=== PATIENT | female | born 1970 | race Caucasian/White ===

== ENCOUNTER 2019-01-10 19:22 | Emergency (ER) | payer OTHER ==
[~2019-01-10] VITALS: Ht 160 cm; Wt 68.0 kg
[2019-01-10] MEDS ORDERED: SINGULAIR4 M1 PO (19:53)
[2019-01-10] MEDS ORDERED: ADVAIR HFA 230/12 GM IH (19:53)
== END 2019-01-11 01:24 | disposition home or self-care (01) ==
LOC: ER 19:22
DX: N20.0 Calculus of kidney (principal); R10.32 Left lower quadrant pain

== ENCOUNTER → 2019-01-23 | Emergency (ER) | payer OTHER ==
[~2019-01-23] VITALS: Ht 160 cm; Wt 64.4 kg
[~2019-01-23] MED LIST: ADVAIR HFA 230/12 GM IH; ALBUTEROL1.25 MG/3 IH; MEDROLPACK PO; PROMETHAZINE W118 ML PO; SINGULAIR4 M1 PO
== END | disposition home or self-care (01) ==
LOC: ER 10:36
DX: J45.998 Other asthma (principal)

== ENCOUNTER 2023-04-27 18:22 | Emergency (ER) | payer OTHER ==
[~2023-04-27] VITALS: Ht 160 cm; Wt 72.6 kg
[2023-04-27] MEDS ORDERED: VENTOLIN HFA18 GM IH (19:03)
== END 2023-04-28 01:35 | disposition home or self-care (01) ==
LOC: ER 18:22
DX: J45.909 Unspecified asthma, uncomplicated (principal); J20.9 Acute bronchitis, unspecified; Z88.6 Allergy status to analgesic agent; Z88.0 Allergy status to penicillin

== ENCOUNTER 2023-06-15 10:26 | Emergency (ER) | payer OTHER ==
[~2023-06-15] VITALS: Ht 160 cm; Wt 72.6 kg
[~2023-06-15 10:26] MED LIST changes: +VENTOLIN HFA18 GM IH
[2023-06-15] MEDS ORDERED: TRAM1TAB98 PO (13:46)
== END 2023-06-15 13:54 | disposition home or self-care (01) ==
LOC: ER 10:26
DX: R10.84 Generalized abdominal pain (principal); N83.209 Unspecified ovarian cyst, unspecified side

== ENCOUNTER 2023-06-26 18:56 | Inpatient (IN) | payer OTHER ==
[~2023-06-26] VITALS: Ht 167.6 cm; Wt 73.5 kg
[~2023-06-26 18:56] MED LIST changes: +TRAM1TAB98 PO
[2023-06-26] MEDS ORDERED: CLARITIN10 M1 (19:08)
[2023-07-02] MEDS ORDERED: MONTELUKAST SOD10 MG PO (09:35)
[2023-07-02] MEDS ORDERED: MEDROLPACK PO (09:36)
[2023-07-02] MEDS ORDERED: ALTIPRES LIQUI473 ML PO (09:36)
== END 2023-07-02 11:35 | disposition home or self-care (01) | DRG 202 ==
LOC: ER 18:56 → MEDJ 22:57
PROVIDERS: ADMIT Internal Medicine; ATTEND Internal Medicine
PROC: BB24ZZZ Computerized Tomography (CT Scan) of Bilateral Lungs (ICD-10-PCS; principal; 2023-06-26)
PROC: 3E0F7GC Introduction of Other Therapeutic Substance into Respiratory Tract, Via Natural or Artificial Opening (ICD-10-PCS; 2023-06-26)
DX: J45.41 Moderate persistent asthma with (acute) exacerbation (principal); R65.10 Systemic inflammatory response syndrome (SIRS) of non-infectious origin without acute organ dysfunction; D72.829 Elevated white blood cell count, unspecified; R09.02 Hypoxemia

== ENCOUNTER 2023-09-26 16:04 | Emergency (ER) | payer OTHER ==
[~2023-09-26] VITALS: Ht 160 cm; Wt 72.6 kg
[~2023-09-26 16:04] MED LIST changes: +ALTIPRES LIQUI473 ML PO; +CLARITIN10 M1; +MONTELUKAST SOD10 MG PO
[2023-09-26 17:54] LABS: HEMATOCRIT 44.1 % (36.0-45.00); HEMOGLOBIN 15.3 g/dL (12.0-15.00); MEAN CELL VOLUME 87.9 fL (80.00-100.00); MEAN CORPUSCULAR HEMOGLOBIN 30.5 pg (27.00-32.0); MEAN CORPUSCULAR HGB CONC 34.7 g/dl (32.0-36.0); PLATELET COUNT 327 K/uL (150-450); RED BLOOD COUNT 5.01 M/uL (4.00-6.00); RED CELL DISTRIBUTION WIDTH 13.1 % (11.5-14.5)
[2023-09-26 18:21] LABS: ALBUMIN 3.3 gm/dL (3.4-5.0); BILIRUBIN TOTAL 0.44 mg/dL (0.3-1.2); CALCIUM 8.5 mg/dL (8.5-10.1); CREATININE SERUM 0.58 mg/dL (0.55-1.02); GFR 109.17; GLOBULINA 3.7 G/DL (2.4-3.5); POTASSIUM 3.46 mEq/L (3.5-5.1)
[2023-09-26 18:44] LABS: PH,URINE 5.5 (5.0-8.0); URINE APPEARANCE Clear; URINE BILIRRUBIN Negative (NEGATIVE); URINE BLOOD Small; URINE COLOR Yellow; URINE GLUCOSE Negative (NEGATIVE); URINE LEUKOCYTE Negative; URINE NITRATE Negative; URINE PROTEIN Negative (NEGATIVE)
[2023-09-26 18:48] LABS: URINE BACTERIA 472.4 uL (0.0-1933); URINE EPITHELIAL CELLS 40.4 uL (0.0-38.8); URINE RBC 23.1 uL (0.0-20.8); URINE WBC 13.7 uL (0.0-23.2)
[2023-09-26] MEDS ORDERED: ONDANSETRON HCL4 MG PO (20:07)
[2023-09-26] MEDS ORDERED: LEVSIN0.125 MG PO (20:07)
[2023-09-26] MEDS ORDERED: PEPCID AC20 MG PO (20:07)
[2023-09-26] MEDS ORDERED: INTESTINEX680 M1 PO (20:07)
== END 2023-09-26 20:43 | disposition home or self-care (01) ==
LOC: ER 16:04
PROVIDERS: Nurse Practitioner Family
DX: A08.4 Viral intestinal infection, unspecified (principal); Z88.6 Allergy status to analgesic agent; Z88.0 Allergy status to penicillin; Z87.09 Personal history of other diseases of the respiratory system; Z20.822 Contact with and (suspected) exposure to COVID-19

== ENCOUNTER 2024-12-03 20:12 | Emergency (ER) | payer OTHER ==
[~2024-12-03] VITALS: Ht 160 cm; Wt 72.1 kg
[~2024-12-03 20:12] MED LIST changes: +INTESTINEX680 M1 PO; +LEVSIN0.125 MG PO; +MILLIPRED5 MG PO; +ONDANSETRON HCL4 MG PO; +PEPCID AC20 MG PO; +XOPENEX CO1.25 MG/0. IH; +ZITHROMAX TRI-500 MG PO
[2024-12-03] MEDS ORDERED: VENTOLIN HFA18 GM (20:59)
[2024-12-03] MEDS ORDERED: WIXELA 250-501 EACH IH (20:59)
[2024-12-03] MEDS ORDERED: CLARITIN5 MG (21:00)
[2024-12-03] MEDS ORDERED: BUTALB/ACETAMINOPHEN/CAFFEINE 1 TAB TABLET PO ONE ×2 (21:26→21:30)
[2024-12-03] MEDS ORDERED: DEXAMETHASONE SODIUM PHOSPHATE 4 MG/ML VIAL ONE (21:27)
[2024-12-03] MEDS ORDERED: PROMETHAZINE HCL 50 MG/ML AMPUL IM ONE ×2 (21:27→21:30)
[2024-12-03] MEDS ORDERED: DEXAMETHASONE SODIUM PHOSPHATE 4 MG/ML VIAL IM ONE (21:30)
[2024-12-03] MEDS ORDERED: BUTALBIT-ACETA1 EACH PO (22:16)
== END 2024-12-03 22:30 | disposition home or self-care (01) ==
LOC: ER 20:12
DX: G43.909 Migraine, unspecified, not intractable, without status migrainosus (principal); Z88.0 Allergy status to penicillin; Z87.09 Personal history of other diseases of the respiratory system; Z88.6 Allergy status to analgesic agent; Z91.011 Allergy to milk products

== ENCOUNTER 2025-03-02 22:21 | Emergency (ER) | payer OTHER ==
[~2025-03-02] VITALS: Ht 160 cm; Wt 72.6 kg
[~2025-03-02 22:21] MED LIST changes: +BUTALBIT-ACETA1 EACH PO; +CLARITIN5 MG; +VENTOLIN HFA18 GM; +WIXELA 250-501 EACH IH
[2025-03-02] MEDS ORDERED: PLAVIX75 MG (22:37)
[2025-03-03] MEDS ORDERED: LEVALBUTEROL HCL 0.63 MG/3 ML SOLUTION IH SCH (01:00)
[2025-03-03] MEDS ORDERED: BUDESONIDE 0.5 MG/2 ML AMPUL.NEB IH STA (01:01)
[2025-03-03] MEDS ORDERED: METHYLPREDNISOLONE SOD SUCC 125 MG VIAL IV STA (01:01)
[2025-03-03] MEDS ORDERED: GUAIFENESIN 200 MG/10 ML BLIST.PACK PO STA (01:02)
[2025-03-03] MEDS ORDERED: GUAIFENESIN 200 MG/10 ML BLIST.PACK PO ONE (01:11)
[2025-03-03] MEDS ORDERED: METHYLPREDNISOLONE SOD SUCC 125 MG VIAL ONE (01:11)
[2025-03-03] MEDS ORDERED: ALBUTEROL SULFATE 3 ML/2.5 MG AMPUL.NEB IH ONE (01:56)
[2025-03-03] MEDS ORDERED: BUDESONIDE 0.5 MG/2 ML AMPUL.NEB IH ONE (01:56)
[2025-03-03] MEDS ORDERED: LEVALBUTEROL HCL 0.63 MG/3 ML SOLUTION IH ONE (01:58)
[2025-03-03 02:08] LABS: HEMATOCRIT 43.7 % (36.0-45.00); HEMOGLOBIN 14.9 g/dL (12.0-15.00); MEAN CELL VOLUME 89.5 fL (80.00-100.00); MEAN CORPUSCULAR HEMOGLOBIN 30.4 pg (27.00-32.0); PLATELET COUNT 341 K/uL (150-450); RED BLOOD COUNT 4.89 M/uL (4.00-6.00); RED CELL DISTRIBUTION WIDTH 12.9 % (11.5-14.5)
[2025-03-03 02:34] LABS: COVID-19 AG NEGATIVE (NEGATIVE); INFLUENZA A AG NEGATIVE (NEGATIVE)
[2025-03-04] MEDS ORDERED: LIPITOR40 M1 (13:05)
[2025-03-04] MEDS ORDERED: XOPENEX CO1.25 MG/0. IH (15:27)
[2025-03-04] MEDS ORDERED: TUSNEL LIQUID178 ML PO (15:27)
[2025-03-04] MEDS ORDERED: LEVOFLOXACIN750 MG PO (15:27)
[2025-03-04] MEDS ORDERED: MEDROLPACK PO (15:27)
== END 2025-03-03 04:20 ==
LOC: ER 22:22
PROVIDERS: General Practice
DX: J45.909 Unspecified asthma, uncomplicated (principal); R05.9 Cough, unspecified; Z20.822 Contact with and (suspected) exposure to COVID-19; Z88.0 Allergy status to penicillin; Z88.6 Allergy status to analgesic agent; Z91.011 Allergy to milk products

== ENCOUNTER 2025-03-04 12:14 | Emergency (ER) | payer OTHER ==
[~2025-03-04] VITALS: Ht 160 cm; Wt 72.6 kg
[~2025-03-04 12:14] MED LIST changes: +PLAVIX75 MG
[2025-03-04] MEDS ORDERED: LIPITOR40 M1 (13:05)
[2025-03-04] MEDS ORDERED: METHYLPREDNISOLONE SOD SUCC 125 MG VIAL ONE (13:29)
[2025-03-04] MEDS ORDERED: HYDROCODONE/CHLORPHEN P-STIREX 5 ML ML PO ONE (13:30)
[2025-03-04] MEDS ORDERED: 0.9 % SODIUM CHLORIDE 1,000 ML IV SCH (13:30)
[2025-03-04] MEDS ORDERED: levoFLOXacin IN DEXTROSE 5 % 5 MG/ML PIGGYBAG IV ONE (13:30)
[2025-03-04] MEDS ORDERED: LEVALBUTEROL HCL 1.25 MG/3 ML SOLUTION IH SCH (13:30)
[2025-03-04] MEDS ORDERED: METHYLPREDNISOLONE SOD SUCC 125 MG VIAL IV ONE (13:30)
[2025-03-04 14:13] LABS: HEMATOCRIT 47.5 % (36.0-45.00); HEMOGLOBIN 15.8 g/dL (12.0-15.00); MEAN CORPUSCULAR HEMOGLOBIN 30.3 pg (27.00-32.0); MEAN CORPUSCULAR HGB CONC 33.3 g/dl (32.0-36.0); PLATELET COUNT 360 K/uL (150-450); RED BLOOD COUNT 5.22 M/uL (4.00-6.00); RED CELL DISTRIBUTION WIDTH 12.8 % (11.5-14.5)
[2025-03-04] MEDS ORDERED: LEVALBUTEROL HCL 0.63 MG/3 ML SOLUTION IH ONE (14:30)
[2025-03-04 14:48] LABS: COVID-19 AG NEGATIVE (NEGATIVE)
[2025-03-04 14:49] LABS: ABG PH 7.459 (7.35-7.45); ABG PO2 91.5 mmHg (80-100); BASE EXCESS 0.4 mmol/l; BICARBONATE 23.6 mmol/l (23-25); SaO2 97.5 %; Tco2 24.6 mmol/l
[2025-03-04 14:53] LABS: INFLUENZA A AG NEGATIVE (NEGATIVE)
[2025-03-04 14:55] LABS: allen test SATISFACTORY; mode ROOM AIR; o2 21 %; puncture site RADIAL LEFT
[2025-03-04] MEDS ORDERED: LEVOFLOXACIN750 MG PO (15:27)
[2025-03-04] MEDS ORDERED: TUSNEL LIQUID178 ML PO (15:27)
[2025-03-04] MEDS ORDERED: XOPENEX CO1.25 MG/0. IH (15:27)
[2025-03-04] MEDS ORDERED: MEDROLPACK PO (15:27)
== END 2025-03-04 16:10 | disposition home or self-care (01) ==
LOC: ER 12:16
PROVIDERS: General Practice
DX: J40 Bronchitis, not specified as acute or chronic (principal); Z20.822 Contact with and (suspected) exposure to COVID-19; Z88.0 Allergy status to penicillin; Z87.09 Personal history of other diseases of the respiratory system; Z88.6 Allergy status to analgesic agent; Z91.011 Allergy to milk products

== ENCOUNTER → 2025-05-26 | Emergency (ER) | payer OTHER ==
[~2025-05-26] VITALS: Ht 160 cm; Wt 73.5 kg
[~2025-05-26] MED LIST changes: +HYDROCODONE/CHLORPHEN P-STIREX 5 ML ML PO STA; +LEVOFLOXACIN750 MG PO; +LIPITOR40 M1; +TUSNEL LIQUID178 ML PO
[2025-05-26 22:12] VITALS: BP 143/85; O2SAT 97
== END | disposition home or self-care (01) ==
LOC: ER 21:35
DX: U07.1 COVID-19 (principal); Z88.0 Allergy status to penicillin; Z91.011 Allergy to milk products; Z88.6 Allergy status to analgesic agent

== ENCOUNTER 2025-08-23 14:32 | Inpatient (IN) | payer OTHER ==
[~2025-08-23] VITALS: Ht 160 cm; Wt 73.5 kg
[~2025-08-23 14:32] MED LIST changes: -HYDROCODONE/CHLORPHEN P-STIREX 5 ML ML PO STA
--- NOTE | 2025-08-23 14:50 | NUR ---
SE RECIBE PACIENTE ALERTA Y ORIENTDA L;A CUAL REFIERE LLEVAR CON ASMA SEVERA DESDE LUNES PASADO. AL MOMENTO PACIENTE SATURANDO 97%. SE MIDEN S/V Y SE UBICA.
[2025-08-23] MEDS ORDERED: METHYLPREDNISOLONE SOD SUCC 125 MG VIAL IV ONE (16:00)
[2025-08-23] MEDS ORDERED: IPRATROPIUM BROMIDE 0.5 MG/2.5 ML AMPUL.NEB IH SCH (16:00)
[2025-08-23] MEDS ORDERED: LEVALBUTEROL HCL 1.25 MG/3 ML SOLUTION IH SCH (16:00)
[2025-08-23] MEDS ORDERED: MAGNESIUM SULFATE IN WATER 2 GM/50 ML PIGGYBAG IV ONE (16:00)
[2025-08-23] MEDS ORDERED: LEVALBUTEROL HCL 1.25 MG/3 ML SOLUTION IH ONE (16:21)
[2025-08-23] MEDS ORDERED: IPRATROPIUM BROMIDE 0.5 MG/2.5 ML AMPUL.NEB IH ONE (16:21)
[2025-08-23 16:50] LABS: ABG PH 7.472 (7.35-7.45); ABG PO2 109.1 mmHg (80-100); BICARBONATE 23.1 mmol/l (23-25)
[2025-08-23 16:52] LABS: o2 28 %
[2025-08-23] MEDS ORDERED: METHYLPREDNISOLONE SOD SUCC 125 MG VIAL ONE (17:06)
--- NOTE | 2025-08-23 18:22 | NUR ---
SE ORIENTA A PACIENTE SOBRE TX MEDICO. SE COLECTAN MUESTRAS DE LABORATORIO Y SE CANALIZA A PACIENTE BAJO MEDIDAS ASEPTICAS. SE ADMINISTRAN MEDICAMENTOS DAINA ORDEN MEDICA. SE NOTIFICA X-RAY.
[2025-08-23 18:24] LABS: BASO % 0.4 % (0.1-1.2); EOS # 0.00 (0.04-0.54); EOS % 0.0 % (0.7-7.0); LYMPH # 1.73 (1.18-3.74); LYMPH % 18.6 % (19.3-53.1); MEAN PLATELET VOLUME 10.40 fl (9.4-12.4); MONO # 1.27 (0.24-0.82); NEUT # 6.18 (1.56-6.13); NEUT % 66.3 % (34.0-71.1); RED CELL DISTRIBUTION WIDTH 12.0 % (11.6-14.4)
[2025-08-23 18:30] LABS: MONO % 13.6 % (4.7-12.5)
[2025-08-23 18:44] LABS: BUN CREA RATIO 16.0 (7.0-25.0); CREATININE SERUM 0.73 mg/dL (0.55-1.02); GFR 83.08; GLUCOSE FASTING 119.0 mg/dL (65-100); OSMOLALITY SERUM 286.0 MOSM/KG (275-295)
[2025-08-23 18:58] LABS: COVID-19 AG NEGATIVE (NEGATIVE)
[2025-08-23] MEDS ORDERED: METHYLPREDNISOLONE SOD SUCC 40 MG VIAL IV ONE (20:30)
[2025-08-23] MEDS ORDERED: METHYLPREDNISOLONE SOD SUCC 40 MG VIAL IV SCH (20:37)
[2025-08-23] MEDS ORDERED: CLOPIDOGREL BISULFATE 75 MG TABLET PO SCH (20:42)
[2025-08-23] MEDS ORDERED: ATORVASTATIN CALCIUM 10 MG TABLET PO SCH (20:42)
[2025-08-23] MEDS ORDERED: 0.9 % SODIUM CHLORIDE 1,000 ML IV SCH (20:45)
[2025-08-23] MEDS ORDERED: ACETAMINOPHEN 325 MG TABLET PO PRN (20:45)
[2025-08-23] MEDS ORDERED: BENZONATATE 100 MG CAPSULE PO PRN (20:45)
[2025-08-23] MEDS ORDERED: MAGNESIUM SULFATE IN WATER 50 ML IV ONE (20:45)
[2025-08-23] MEDS ORDERED: IPRATROPIUM/ALBUTEROL SULFATE 3 ML AMPUL.NEB IH SCH (21:00)
[2025-08-23] MEDS ORDERED: IPRATROPIUM/ALBUTEROL SULFATE 3 ML AMPUL.NEB IH ONE (21:52)
[2025-08-24 00:13] LABS: URINE APPEARANCE Clear; URINE BILIRRUBIN Negative (NEGATIVE); URINE BLOOD Moderate; URINE COLOR Yellow; URINE GLUCOSE Negative (NEGATIVE); URINE KETONE Negative (NEGATIVE); URINE LEUKOCYTE Negative; URINE NITRATE Negative; URINE PROTEIN Negative (NEGATIVE); URINE UROBILINOGEN 0.2 E.U./dl
[2025-08-24 00:17] VITALS: BP 137/87; O2SAT 98
[2025-08-24 00:17] LABS: URINE BACTERIA 327.5 uL (0.0-1933); URINE EPITHELIAL CELLS 28.1 uL (0.0-38.8); URINE RBC 12.7 uL (0.0-20.8); URINE WBC 2.1 uL (0.0-23.2)
[2025-08-24 00:30] LABS: URINE CAST 0.00 uL (0.0-1.40)
[2025-08-24 02:31] VITALS: BP 130/85; O2SAT 99
[2025-08-24 05:44] LABS: ALT/SGPT 43.0 U/L (12-78); AST/SGOT 11.0 U/L (15-37); BILIRUBIN TOTAL 0.31 mg/dL (0.3-1.2); BUN CREA RATIO 15.0 (7.0-25.0); CREATININE SERUM 0.73 mg/dL (0.55-1.02); GFR 83.08; GLOBULINA 3.1 G/DL (2.4-3.5); GLUCOSE FASTING 188.0 mg/dL (65-100); OSMOLALITY SERUM 284.0 MOSM/KG (275-295)
[2025-08-24 08:19] VITALS: BP 110/70
[2025-08-24] MEDS ORDERED: levoFLOXacin IN DEXTROSE 5 % 150 ML IV SCH (09:06)
[2025-08-24] MEDS ORDERED: BUDESONIDE 0.5 MG/2 ML AMPUL.NEB IH SCH (09:07)
[2025-08-24] MEDS ORDERED: PANTOPRAZOLE SODIUM 40 MG/VIAL VIAL IV PUSH SCH (12:15)
[2025-08-24] MEDS ORDERED: BUDESONIDE 0.5 MG/2 ML AMPUL.NEB IH ONE (12:34)
[2025-08-24] MEDS ORDERED: METHYLPREDNISOLONE SOD SUCC 40 MG VIAL IV SCH (17:00)
[2025-08-24 17:11] VITALS: BP 135/81; O2SAT 97
[2025-08-25 01:53] LABS: ABG PH 7.533 (7.35-7.45)
[2025-08-25 01:54] LABS: BICARBONATE 21.8 mmol/l (23-25); o2 21 %
[2025-08-25 01:56] LABS: ABG PO2 77.3 mmHg (80-100)
[2025-08-25 02:33] VITALS: BP 125/79; O2SAT 100
[2025-08-25 06:45] LABS: BASO % 0.2 % (0.1-1.2); EOS # 0.01 (0.04-0.54); EOS % 0.1 % (0.7-7.0); LYMPH # 1.09 (1.18-3.74); LYMPH % 6.0 % (19.3-53.1); MEAN PLATELET VOLUME 10.80 fl (9.4-12.4); MONO # 0.95 (0.24-0.82); MONO % 5.2 % (4.7-12.5); NEUT # 15.82 (1.56-6.13); NEUT % 87.4 % (34.0-71.1); RED CELL DISTRIBUTION WIDTH 12.2 % (11.6-14.4)
[2025-08-25 06:57] LABS: BUN CREA RATIO 22 (7.0-25.0); CREATININE SERUM 0.67 mg/dL (0.55-1.02); GFR 91.72
[2025-08-25 07:02] LABS: GLUCOSE FASTING 216 mg/dL (65-100); OSMOLALITY SERUM 287 MOSM/KG (275-295)
[2025-08-25 08:45] VITALS: BP 148/86; O2SAT 96
[2025-08-25] MEDS ORDERED: MOMETASONE FUROATE 17GM SPRAY NASAL SCH (11:17)
[2025-08-25] MEDS ORDERED: LORATADINE 10 MG TABLET PO SCH (11:17)
[2025-08-25] MEDS ORDERED: SODIUM CHLORIDE 0.45 % 1,000 ML IV SCH (11:30)
[2025-08-25] MEDS ORDERED: BENZONATATE 100 MG CAPSULE PO SCH (13:00)
[2025-08-25] MEDS ORDERED: METHYLPREDNISOLONE SOD SUCC 40 MG VIAL IV SCH (17:00)
[2025-08-25 19:42] VITALS: BP 131/77
[2025-08-25] MEDS ORDERED: BUDESONIDE 0.5 MG/2 ML AMPUL.NEB IH ONE (21:29)
[2025-08-25 22:03] LABS: ABG PH 7.428 (7.35-7.45); ABG PO2 112.0 mmHg (80-100); BICARBONATE 23.6 mmol/l (23-25)
[2025-08-25 22:04] LABS: o2 36 %
[2025-08-26 01:18] VITALS: BP 119/74; O2SAT 100
[2025-08-26 08:38] VITALS: BP 120/75; O2SAT 97
[2025-08-26] MEDS ORDERED: ATORVASTATIN CALCIUM 20 MG TABLET PO SCH (09:00)
[2025-08-26 18:24] VITALS: BP 125/73
[2025-08-27 01:36] VITALS: BP 113/73; O2SAT 98
[2025-08-27] MEDS ORDERED: METHYLPREDNISOLONE SOD SUCC 40 MG VIAL IV SCH (09:00)
[2025-08-27 09:48] VITALS: BP 127/78; O2SAT 98
[2025-08-27 18:18] VITALS: BP 145/83; O2SAT 98
[2025-08-28 01:29] VITALS: BP 136/79; O2SAT 99
[2025-08-28 10:01] VITALS: BP 124/83; O2SAT 97
[2025-08-28 11:37] LABS: BASO % 0.4 % (0.1-1.2); EOS # 0.01 (0.04-0.54); EOS % 0.1 % (0.7-7.0); LYMPH # 2.53 (1.18-3.74); LYMPH % 13.6 % (19.3-53.1); MEAN PLATELET VOLUME 10.40 fl (9.4-12.4); MONO # 1.12 (0.24-0.82); MONO % 6.0 % (4.7-12.5); NEUT # 14.04 (1.56-6.13); NEUT % 75.7 % (34.0-71.1); RED CELL DISTRIBUTION WIDTH 12.1 % (11.6-14.4)
[2025-08-28 12:00] LABS: ALT/SGPT 36 U/L (12-78); AST/SGOT 10 U/L (15-37); BILIRUBIN TOTAL 0.32 mg/dL (0.3-1.2); BUN CREA RATIO 19 (7.0-25.0); CREATININE SERUM 0.69 mg/dL (0.55-1.02); GFR 88.66; GLOBULINA 3.0 G/DL (2.4-3.5); LDH 203 U/L (84-246)
[2025-08-28 12:01] LABS: GLUCOSE FASTING 202 mg/dL (65-100); OSMOLALITY SERUM 283 MOSM/KG (275-295)
[2025-08-28 17:05] VITALS: BP 148/85; O2SAT 97
[2025-08-29 01:49] VITALS: BP 111/73; O2SAT 97
[2025-08-29 09:26] VITALS: BP 124/81; O2SAT 96
[2025-08-29 17:16] VITALS: BP 130/80; O2SAT 96
[2025-08-30 03:02] VITALS: BP 139/90; O2SAT 97
[2025-08-30] MEDS ORDERED: METHYLPREDNISOLONE SOD SUCC 40 MG VIAL IV SCH (05:00)
[2025-08-30 10:04] VITALS: BP 110/61; O2SAT 96
[2025-08-30] MEDS ORDERED: AMIODARONE HCL 518 ML IV SCH (14:15)
[2025-08-30 14:41] VITALS: O2SAT 94
[2025-08-30 17:00] VITALS: O2SAT 96
[2025-08-30] MEDS ORDERED: BENZONATATE 200 MG CAPSULE PO SCH (17:00)
[2025-08-30 17:35] VITALS: BP 109/80
[2025-08-30 20:16] VITALS: O2SAT 95
[2025-08-31] VITALS (9 sets, daily range): BP systolic 120–125; BP diastolic 75–83; O2SAT 90–99
[2025-08-31 05:44] LABS: BASO % 0.3 % (0.1-1.2); EOS # 0.00 (0.04-0.54); EOS % 0.0 % (0.7-7.0); LYMPH # 1.59 (1.18-3.74); LYMPH % 7.9 % (19.3-53.1); MEAN PLATELET VOLUME 10.20 fl (9.4-12.4); MONO # 1.21 (0.24-0.82); MONO % 6.0 % (4.7-12.5); NEUT # 16.78 (1.56-6.13); NEUT % 82.9 % (34.0-71.1); RED CELL DISTRIBUTION WIDTH 11.9 % (11.6-14.4)
[2025-08-31 06:58] LABS: ALT/SGPT 36 U/L (12-78); AST/SGOT 11 U/L (15-37); BILIRUBIN TOTAL 0.47 mg/dL (0.3-1.2); BUN CREA RATIO 25 (7.0-25.0); CREATININE SERUM 0.65 mg/dL (0.55-1.02); GFR 94.99; GLOBULINA 2.9 G/DL (2.4-3.5); GLUCOSE FASTING 153 mg/dL (65-100); OSMOLALITY SERUM 280 MOSM/KG (275-295)
[2025-08-31 07:44] LABS: TSH 0.273 uIU/mL (0.358-3.74)
[2025-08-31] MEDS ORDERED: AMIODARONE HCL 200 MG TABLET PO SCH (21:00)
[2025-08-31 23:10] LABS: FREE TRIODOTIRONINE 1.56 pg/ml (2.18-3.98); T4 TOTAL 8.02 UG/DL (4.8-13.9)
[2025-08-31 23:12] LABS: T4 FREE 1.01 NG/ML (0.76-1.46)
[2025-09-01] VITALS (8 sets, daily range): BP systolic 119–124; BP diastolic 80–85; O2SAT 93–97
[2025-09-01] MEDS ORDERED: LEVALBUTEROL HCL 0.63 MG/3 ML SOLUTION IH SCH (08:00)
[2025-09-01] MEDS ORDERED: APIXABAN 5 MG TABLET PO SCH (09:00)
[2025-09-01] MEDS ORDERED: CLOPIDOGREL BISULFATE 75 MG TABLET PO NR (12:45)
[2025-09-01] MEDS ORDERED: ELIQUIS5 MG PO (19:41)
[2025-09-01] MEDS ORDERED: AMIODARONE HCL200 MG PO (19:41)
== END 2025-09-01 19:51 | disposition home or self-care (01) | DRG 202 ==
LOC: MEDJ → ER 14:32 → MEDJ 21:08
PROVIDERS: General Practice; Internal Medicine; Internal Medicine Infectious Disease; ADMIT Internal Medicine; ATTEND Internal Medicine
PROC: 3E0F7GC Introduction of Other Therapeutic Substance into Respiratory Tract, Via Natural or Artificial Opening (ICD-10-PCS; 2025-08-23)
PROC: BB24ZZZ Computerized Tomography (CT Scan) of Bilateral Lungs (ICD-10-PCS; principal; 2025-08-24)
PROC: B246ZZZ Ultrasonography of Right and Left Heart (ICD-10-PCS; 2025-08-25)
PROC: 8E0ZXY6 Isolation (ICD-10-PCS; 2025-08-26)
PROC: 02HV33Z Insertion of Infusion Device into Superior Vena Cava, Percutaneous Approach (ICD-10-PCS; 2025-08-27)
PROC: 4A12X4Z Monitoring of Cardiac Electrical Activity, External Approach (ICD-10-PCS; 2025-08-30)
DX: J45.51 Severe persistent asthma with (acute) exacerbation (principal); R65.10 Systemic inflammatory response syndrome (SIRS) of non-infectious origin without acute organ dysfunction; I10 Essential (primary) hypertension; E78.49 Other hyperlipidemia; B96.0 Mycoplasma pneumoniae [M. pneumoniae] as the cause of diseases classified elsewhere; I25.10 Atherosclerotic heart disease of native coronary artery without angina pectoris; J06.9 Acute upper respiratory infection, unspecified; I48.91 Unspecified atrial fibrillation; D72.828 Other elevated white blood cell count

== ENCOUNTER 2025-09-16 08:44 | Outpatient (CLI) | payer OTHER ==
[~2025-09-16 08:44] MED LIST changes: +AMIODARONE HCL200 MG PO; +ELIQUIS5 MG PO
== END 2025-09-16 08:50 | disposition home or self-care (01) ==
LOC: MAMO-SONO 08:44
DX: N60.11 Diffuse cystic mastopathy of right breast (principal); N60.12 Diffuse cystic mastopathy of left breast